=== PATIENT | male | born 1980 | race African-American/Black ===

== ENCOUNTER 2017-02-11 10:21 | Emergency (ER) | payer OTHER ==
[~2017-02-11] VITALS: Ht 177.8 cm; Wt 72.6 kg
[~2017-02-11 10:21] MED LIST: APAP/CODEINE ELI5 M1 OR; AZITHROMYCIN 2250 MG PO; BACTRIM DS TAB1 EACH PO; BENADRYL25 MG PO; CLEOCIN HCL300 MG PO; DOXYCYCLINE 10100 MG PO; DUONEB 2.5-0.5 M3 ML IH; ERYTHROMYCIN E3.5 G1 OPHTHALMIC; KEFLEX500 MG PO; MEDROLDOSEPACK PO; MUPIROCIN1 GM TP; NOHOMEMEDICATIONS; NORCO 5-325 TA1 EACH PO; PROAIR HFA8.5 GM IH; THERAFLU COLD1 EAC1; VISTARIL 25 MG25 M1 PO; ZPAK PO
[2017-02-11 12:34] VITALS: BP 142/94
== END 2017-02-11 12:35 | disposition home or self-care (01) ==
LOC: ER 10:21
DX: S46.911A Strain of unspecified muscle, fascia and tendon at shoulder and upper arm level, right arm, initial encounter (principal); J45.909 Unspecified asthma, uncomplicated; F17.210 Nicotine dependence, cigarettes, uncomplicated; F10.99 Alcohol use, unspecified with unspecified alcohol-induced disorder; Z88.2 Allergy status to sulfonamides; X58.XXXA Exposure to other specified factors, initial encounter; Y93.89 Activity, other specified; Y92.89 Other specified places as the place of occurrence of the external cause; Y99.8 Other external cause status

== ENCOUNTER 2017-11-18 09:59 | Emergency (ER) | payer BC ==
[~2017-11-18] VITALS: Ht 177.8 cm; Wt 81.7 kg
[2017-11-18 10:31] LABS: URINE BILIRUBIN NEGATIVE (Negative); URINE BLOOD TRACE (Negative); URINE CLARITY CLEAR; URINE COLOR YELLOW; URINE GLUCOSE-RANDOM* NEGATIVE (Negative); URINE KETONES NEGATIVE (Negative); URINE LEUKOCYTES TRACE (Negative); URINE NITRITE NEGATIVE (Negative); URINE PROTEIN (DIPSTICK) NEGATIVE (Negative); URINE UROBILINOGEN 0.2 E.U./dl (0.2-1.0)
[2017-11-18 10:36] LABS: ABSOLUTE NEUTROPHILS 4.4 thou/uL (1.4-8.2); BASOPHILS 0.9 % (0.0-2.0); EOSINOPHILS 0.9 % (0.0-3.0); HEMATOCRIT 47.6 % (42.0-52.0); HEMOGLOBIN 16.3 gm/dL (14.0-18.0); LYMPHOCYTES 24.2 % (24.0-44.0); MCH 30.6 pg (26.0-34.0); MCHC 34.3 g/dL (28.0-37.0); MCV 89.1 fL (80.0-100.0); MONOCYTES 7.8 % (1.0-8.0); PLATELET COUNT 329 thou/uL (150-400); POLYS 66.2 % (36.0-66.0); RBC 5.34 mil/uL (4.50-6.00); RDW 14.8 % (10.5-14.5); WBC 6.7 thou/uL (4.0-11.0)
[2017-11-18 10:41] LABS: CALCIUM 9.7 mg/dL (8.5-10.1); CREATININE 0.9 mg/dL (0.7-1.3); POTASSIUM 3.9 mmol/L (3.5-5.1)
[2017-11-18 10:47] LABS: ALBUMIN 3.9 g/dL (3.4-5.0); TOTAL BILIRUBIN 0.7 mg/dL (<0.1-1.0); TOTAL PROTEIN 7.5 g/dL (6.4-8.2)
== END 2017-11-18 12:13 | disposition home or self-care (01) ==
LOC: ER 09:59
PROVIDERS: Physician Assistant
DX: N20.0 Calculus of kidney (principal); J45.909 Unspecified asthma, uncomplicated; F17.210 Nicotine dependence, cigarettes, uncomplicated; Z88.1 Allergy status to other antibiotic agents

== ENCOUNTER 2018-10-28 08:12 | Emergency (ER) | payer BC ==
[~2018-10-28] VITALS: Ht 177.8 cm; Wt 81.7 kg
[2018-10-28] MEDS ORDERED: [UNRECOGNIZED DRUG - OTHER] TOP (08:36)
[2018-10-28] MEDS ORDERED: KEFLEX500 M1 PO (08:36)
[2018-10-28 08:38] VITALS: BP 148/84
== END 2018-10-28 08:48 | disposition home or self-care (01) ==
LOC: ER 08:12
DX: L73.9 Follicular disorder, unspecified (principal); B86 Scabies; J45.909 Unspecified asthma, uncomplicated; F17.210 Nicotine dependence, cigarettes, uncomplicated; Z87.442 Personal history of urinary calculi

== ENCOUNTER 2019-04-23 21:21 | Emergency (ER) | payer OTHER ==
[~2019-04-23] VITALS: Ht 177.8 cm; Wt 81.7 kg
[~2019-04-23 21:21] MED LIST changes: +KEFLEX500 M1 PO; +[UNRECOGNIZED DRUG - OTHER] TOP
[2019-04-23 22:02] LABS: ABSOLUTE NEUTROPHILS 6.8 thou/uL (1.4-8.2); BASOPHILS 0.8 % (0.0-2.0); EOSINOPHILS 0.9 % (0.0-3.0); HEMATOCRIT 52.3 % (42.0-52.0); HEMOGLOBIN 18.2 gm/dL (14.0-18.0); LYMPHOCYTES 17.1 % (24.0-44.0); MCH 31.7 pg (26.0-34.0); MCHC 34.9 g/dL (28.0-37.0); MCV 90.8 fL (80.0-100.0); MONOCYTES 5.5 % (1.0-8.0); PLATELET COUNT 253 thou/uL (150-400); POLYS 75.7 % (36.0-66.0); RBC 5.76 mil/uL (4.50-6.00); WBC 9.1 thou/uL (4.0-11.0)
[2019-04-23 22:32] LABS: CALCIUM 9.1 mg/dL (8.5-10.1); CREATININE 0.9 mg/dL (0.7-1.3); POTASSIUM 3.8 mmol/L (3.5-5.1)
[2019-04-23 22:37] LABS: ALBUMIN 3.9 g/dL (3.4-5.0); TOTAL BILIRUBIN 0.6 mg/dL (<0.1-1.0); TOTAL PROTEIN 7.4 g/dL (6.4-8.2)
[2019-04-23 22:48] LABS: URINE BILIRUBIN 2+ (Negative); URINE BLOOD 3+ (Negative); URINE CLARITY CLOUDY; URINE COLOR RED; URINE GLUCOSE-RANDOM* NEGATIVE (Negative); URINE KETONES 1+ (Negative); URINE LEUKOCYTES-REFLEX TRACE (Negative); URINE PROTEIN (DIPSTICK) 2+ (Negative); URINE SPECIFIC GRAVITY 1.025 (1.005-1.035)
[2019-04-23 22:51] LABS: URINE NITRITE-REFLEX POSITIVE (Negative)
[2019-04-23 22:57] LABS: CASTS None Seen /LPF (None Seen); MUCUS 4-6 Moderate strn/LPF (None Seen); SQUAMOUS None Seen /LPF (0-3); URINE WBC-REFLEX 0-5 Rare /HPF (0-5)
[2019-04-23 22:58] LABS: URINE RBC >20 Many /HPF (0-2)
[2019-04-23 22:59] LABS: BACTERIA-REFLEX 1-9 Few /HPF (None Seen); CRYSTALS None Seen /LPF (None Seen)
[2019-04-23] MEDS ORDERED: IBUPROFEN 800800 M1 PO (23:26)
[2019-04-23] MEDS ORDERED: NORCO 5-325 TA1 EAC1 PO (23:26)
[2019-04-23] MEDS ORDERED: SENNA-DOCUSATE1 EAC1 PO (23:26)
[2019-04-23] MEDS ORDERED: FLOMAX0.4 MG PO (23:26)
[2019-04-23] MEDS ORDERED: ZOFRAN ODT4 MG PO (23:26)
[2019-04-24] MEDS ORDERED: PERCOCET 7.5-31 EACH PO (00:38)
[2019-04-24 00:40] VITALS: BP 153/76
== END 2019-04-24 00:54 | disposition home or self-care (01) ==
LOC: ER 21:21
PROVIDERS: Physician Assistant
DX: N20.1 Calculus of ureter (principal); F17.210 Nicotine dependence, cigarettes, uncomplicated; J45.909 Unspecified asthma, uncomplicated; Z88.2 Allergy status to sulfonamides; Z88.8 Allergy status to other drugs, medicaments and biological substances

== ENCOUNTER 2019-05-06 21:52 | Emergency (ER) | payer OTHER ==
[~2019-05-06] VITALS: Ht 177.8 cm; Wt 81.7 kg
[~2019-05-06 21:52] MED LIST changes: +FLOMAX0.4 MG PO; +IBUPROFEN 800800 M1 PO; +NORCO 5-325 TA1 EAC1 PO; +PERCOCET 7.5-31 EACH PO; +SENNA-DOCUSATE1 EAC1 PO; +ZOFRAN ODT4 MG PO
[2019-05-06 22:22] LABS: ABSOLUTE NEUTROPHILS 8.3 thou/uL (1.4-8.2); BASOPHILS 0.6 % (0.0-2.0); EOSINOPHILS 0.7 % (0.0-3.0); HEMATOCRIT 55.6 % (42.0-52.0); MCH 31.1 pg (26.0-34.0); MCHC 34.1 g/dL (28.0-37.0); MCV 91.1 fL (80.0-100.0); MONOCYTES 6.7 % (1.0-8.0); PLATELET COUNT 282 thou/uL (150-400); RDW 14.5 % (10.5-14.5); WBC 10.2 thou/uL (4.0-11.0)
[2019-05-06 22:36] LABS: URINE BILIRUBIN 2+ (Negative); URINE BLOOD 2+ (Negative); URINE CLARITY CLEAR; URINE COLOR YELLOW; URINE GLUCOSE-RANDOM* NEGATIVE (Negative); URINE KETONES 3+ (Negative); URINE LEUKOCYTES-REFLEX NEGATIVE (Negative); URINE NITRITE-REFLEX NEGATIVE (Negative); URINE PROTEIN (DIPSTICK) 2+ (Negative); URINE SPECIFIC GRAVITY 1.025 (1.005-1.035); URINE UROBILINOGEN 0.2 E.U./dl (0.2-1.0)
[2019-05-06 22:38] LABS: CALCIUM 9.5 mg/dL (8.5-10.1); CREATININE 1.5 mg/dL (0.7-1.3); POTASSIUM 3.9 mmol/L (3.5-5.1)
[2019-05-06 22:42] LABS: ICTOTEST (BILI CONFIRMATORY) Positive (Negative)
[2019-05-06 22:43] LABS: BACTERIA-REFLEX 1-9 Few /HPF (None Seen); CASTS None Seen /LPF (None Seen); MUCUS 4-6 Moderate strn/LPF (None Seen); SQUAMOUS 0-3 Few /LPF (0-3); TRANSITIONAL EPITHEL CELL 0-3 Few /LPF (None Seen); URINE RBC 3-10 Few /HPF (0-2); URINE WBC-REFLEX 0-5 Rare /HPF (0-5)
[2019-05-06 22:44] LABS: CRYSTALS None Seen /LPF (None Seen)
[2019-05-06 22:45] LABS: DIRECT BILIRUBIN 0.2 mg/dL (<0.1-0.3); TOTAL BILIRUBIN 0.9 mg/dL (<0.1-1.0)
[2019-05-07 01:40] VITALS: BP 15/117
== END 2019-05-07 01:42 | disposition short-term general hospital (02) ==
LOC: ER 21:52
PROVIDERS: Emergency Medicine
DX: N13.2 Hydronephrosis with renal and ureteral calculous obstruction (principal); J45.909 Unspecified asthma, uncomplicated; F17.210 Nicotine dependence, cigarettes, uncomplicated; Z87.442 Personal history of urinary calculi; Z88.1 Allergy status to other antibiotic agents; Z88.2 Allergy status to sulfonamides